=== PATIENT | female | born 1990 | race African-American/Black ===

== ENCOUNTER 2017-10-23 10:52 | Emergency (ER) | payer OTHER ==
[~2017-10-23] VITALS: Ht 167.6 cm; Wt 104.3 kg
[~2017-10-23 10:52] MED LIST: DIFLUCAN150 MG PO; FLAGYL500 MG; FLAGYL500 MG PO; MACROBID 100 M100 M1 PO; PRENATAL TABLE1 EAC3 PO; ZOFRAN4 MG PO
[2017-10-23 11:43] LABS: URINE BLOOD NEGATIVE (Negative); URINE CLARITY CLEAR; URINE COLOR YELLOW; URINE GLUCOSE-RANDOM NEGATIVE (Negative); URINE KETONES NEGATIVE (Negative); URINE LEUKOCYTES-REFLEX NEGATIVE (Negative); URINE NITRITE-REFLEX NEGATIVE (Negative); URINE PROTEIN NEGATIVE (Negative); URINE UROBILINOGEN 0.2 E.U./dl (0.2-1.0)
[2017-10-23 11:46] LABS: ICTOTEST (BILI CONFIRMATORY) Negative (Negative); URINE BILIRUBIN 1+ (Negative)
[2017-10-23 12:02] LABS: AMP/METHAMP Negative (Negative); BARBITURATES Negative (Negative); BENZODIAZEPINES Negative (Negative); COCAINE Negative (Negative); METHADONE Negative (Negative); OPIATES Negative (Negative); PCP Negative (Negative); THC Negative (Negative)
[2017-10-23] MEDS ORDERED: ACYCLOVIR 400400 MG PO (12:07)
[2017-10-23 12:28] VITALS: BP 128/80
== END 2017-10-23 12:29 | disposition home or self-care (01) ==
LOC: M.ERS 10:52
PROVIDERS: Physician Assistant
DX: B00.9 Herpesviral infection, unspecified (principal); Z98.890 Other specified postprocedural states; Z88.1 Allergy status to other antibiotic agents